=== PATIENT | female | born 1965 | race Two or more races ===

== ENCOUNTER 2023-06-11 07:19 | Day surgery (SDC) | payer BC ==
[2023-06-11] MEDS ORDERED: ANESTHESIA TRAY IN PYXIS 1 EA TRAY MC ONE (07:42)
[2023-06-11] MEDS ORDERED: FENTANYL PF 100MCG/2ML AMPUL ONE (07:49)
== END 2023-06-11 11:30 | disposition home or self-care (01) ==
LOC: DS 07:19
PROVIDERS: ATTEND Surgery
DX: Z12.11 Encounter for screening for malignant neoplasm of colon (principal); Z80.0 Family history of malignant neoplasm of digestive organs; Z85.038 Personal history of other malignant neoplasm of large intestine; K64.8 Other hemorrhoids; E66.3 Overweight
CPT/HCPCS: 43239; 45380; J2704; J3010; J3490; J7030

== ENCOUNTER 2024-04-09 09:27 | Outpatient (CLI) | payer BC ==
[2024-04-09 09:28] LABS: CALCIUM, SERUM 9.4 mg/dL (8.5-10.1); CREATININE 0.8 mg/dL (0.6-1.3); POTASSIUM 4.2 mmol/L (3.5-5.1)
[2024-04-09 09:55] LABS: BASOPHILS % (AUTO) 0.7 % (0.0-2.0); EOSINOPHILS # (AUTO) 0.1 K/uL (0.0-0.7); EOSINOPHILS % (AUTO) 1.5 % (0.0-6.0); HEMATOCRIT 44 % (33-45); HEMOGLOBIN 14.5 g/dL (11.5-14.8); LYMPHOCYTES # (AUTO) 1.6 K/uL (0.8-4.8); LYMPHOCYTES % (AUTO) 26.5 % (20.0-44.0); MEAN CORPUSCULAR HEMOGLOBIN 30 PG (26.0-33.0); MEAN CORPUSCULAR HGB CONC 33 g/dl (31.0-36.0); MEAN CORPUSCULAR VOLUME 92 fL (82-100); MONOCYTES # (AUTO) 0.4 K/uL (0.1-1.30); MONOCYTES % (AUTO) 6.1 % (2.0-12.0); NEUTROPHILS # (AUTO) 3.9 K/uL (1.8-8.9); NEUTROPHILS % (AUTO) 65.2 % (43.0-81.0); PLATELET COUNT (AUTO) 166 K/uL (150-450); RED BLOOD CELL COUNT(AUTO) 4.81 MIL/uL (4.0-5.2); RED CELL DISTRIBUTION WIDTH 14.5 % (11.5-15.0); WHITE BLOOD COUNT (AUTO) 5.9 K/uL (4.3-11.0)
[2024-04-09 09:58] LABS: INR 1.04 (0.91-1.10); PARTIAL THROMBOPLASTIN TIME 27.8 SEC (24.3-34.3)
== END 2024-04-09 23:59 | disposition home or self-care (01) ==
LOC: LAB 09:27
PROVIDERS: ATTEND Surgery
DX: Z01.818 Encounter for other preprocedural examination (principal); N62 Hypertrophy of breast
CPT/HCPCS: 36415; 71046; 80048-TC; 85025-TC; 85610-TC; 85730-TC

== ENCOUNTER 2024-04-15 10:27 | Day surgery (SDC) | payer BC ==
[~2024-04-15 10:27] MED LIST: ANESTHESIA TRAY IN PYXIS 1 EA TRAY MC ONE; BACITRACIN ZINC OINT PACKET 1 EA PACKET TP ONE; BUPIVACAINE 0.5 % PF 150 MG/30 ML VIAL ONE; LIDOCAINE 1% INJ 50 ML MDV IJ ONE; LIDOCAINE 1%-EPI 1:100,000 20 ML VIAL ONE; LIDOCAINE HCL/MPF 1% 30 ML VIAL IJ ONE
[2024-04-15] MEDS ORDERED: FENTANYL PF 100MCG/2ML AMPUL ONE (12:11)
[2024-04-15] MEDS ORDERED: FAMOTIDINE/PF INJ 20 MG/2 ML VIAL IV ONE (12:12)
[2024-04-15] MEDS ORDERED: MIDAZOLAM HCL 2 MG/2ML VIAL ONE (12:12)
== END 2024-04-15 14:49 | disposition home or self-care (01) ==
LOC: DS 10:27
PROVIDERS: ATTEND Surgery
DX: N62 Hypertrophy of breast (principal); E66.9 Obesity, unspecified; Z98.890 Other specified postprocedural states
CPT/HCPCS: 15736; 24071; 88305; A6209; J0690; J1100; J2250; J2405; J2704; J2765; J3010; J3490; J7030

== ENCOUNTER 2024-11-23 07:23 | Day surgery (SDC) | payer BC | END 2024-11-23 10:40 | disposition home or self-care (01) | LOC: DS 07:23 | PROVIDERS: ATTEND Surgery | DX: R10.13 Epigastric pain (principal); K44.9 Diaphragmatic hernia without obstruction or gangrene; K29.80 Duodenitis without bleeding; K29.70 Gastritis, unspecified, without bleeding; Z80.0 Family history of malignant neoplasm of digestive organs; Z79.899 Other long term (current) drug therapy; Z98.890 Other specified postprocedural states | CPT/HCPCS: 43239; J2704; J3490; J7030 ==